=== PATIENT | male | born 1975 | race Caucasian/White ===

== ENCOUNTER 2017-02-21 15:59 | Emergency (ER) | payer OTHER ==
[~2017-02-21] VITALS: Ht 167.6 cm; Wt 88.2 kg
[2017-02-21 16:02] VITALS: BP 132/67; PULSE 78; TEMP 36.4; O2SAT 94; Ht 167.6 cm; Wt 88.2 kg
[2017-02-21] MEDS ORDERED: CEPH500C PO (16:13)
--- NOTE | 2017-02-21 16:13 | EMERGENCY ROOM VISIT NOTE ---
History First contact with patient: 16:06 Chief Complaint: TETANUS SHOT NEEDED Stated Complaint: NEEDS TETANUS SHOT History of Present Illness The patient is a 41 year old male who presents to the Emergency Room via private vehicle with complaints of "needs tetanus shot". The patient states that 3 days ago, he was at a grocery store, pushing a shopping cart when a metal portion of the shopping cart that was rusted was poking out and struck him in the abdomen. It punctured the abdomen near the umbilicus about 1.5 cm. He states pain around the site and believes he needs his tetanus immunization updated. He notes minimal pain at the region, and some redness/swelling. He rates the overall pain as a 0/10. He is concerned because his tetanus is up-to- date. Review of Systems A complete 6-point Review of Systems was discussed with the patient, with pertinent positives and negatives listed in the History of Present Illness. All remaining Review of Systems questions can be considered negative unless otherwise specified. Past Medical/Surgical History No pertinent. Family History No pertinent. Social History Smoking Status: Never Smoker Social History: Patient lives locally. Current/Historical Medications Scheduled Cephalexin Monohydrate (Keflex), 500 MG PO TID Allergies Coded Allergies: No Known Allergies (Unverified , 02/21/17) Physical Exam Vital Signs Date Time Temp Pulse Resp B/P (MAP) Pulse Ox O2 Delivery O2 Flow Rate FiO2 02/21/17 16:02 36.4 78 20 132/67 94 Room Air Physical Exam VITAL SIGNS - Vital signs and nursing notes were reviewed. Stable and afebrile. GENERAL -41-year-old male appearing his stated age who is in no acute distress. Communicates well with provider and answers questions appropriately. SKIN - Without rashes. There is a small erythematous region with a central 0.5 cm circular scab just to the right of the umbilicus in the abdomen. This appears to be a superficial wound. There is no drainage. ABDOMEN - Abdominal contour normal without pulsations or visible masses. There is slight tenderness at the superficial skin at the location of the puncture wound, no evidence of deep involvement. BS normoactive all four quadrants. No deep tenderness, palpable masses, hepatosplenomegaly, or ascites noted. Medical Decision & Procedures Medications Administered Medications (Trade) Dose Ordered Sig/Serena Route Start Time Stop Time Status Last Admin Dose Admin Diphtheria/ Pertussis/Tetanus Vacc (Adacel Inj) 0.5 ml ONCE ONCE IM. 02/21/17 16:15 02/21/17 16:20 DC 02/21/17 16:23 0.5 ML Medical Decision Patient was seen and evaluated as above. He presents to us today for his tetanus booster. He states that he was poked in the abdomen while at a store by the shopping cart that was pallavi. He is concerned that because his tetanus isn't up-to-date he is at risk. His tetanus was updated. The wound was dressed with a bacitracin dressing. He cleansed it at the time of the injury. This is day 3. Because of the small erythema amount, and the puncture wound nature in the abdomen itself I will start him on Keflex because of the high risk for infection. Does not appear to reach any intra-abdominal organ. It is superficial. The patient was educated upon management, educated upon worrisome symptoms which to return, had questions prior to discharge, and was discharged home in good condition. In evaluation and treatment of this patient the following differential diagnoses were entertained: Puncture wound, infection, prophylactic need for tetanus immunization, among others. Impression Primary Impression: Puncture wound Additional Impression: Need for tetanus booster Departure Information Dispostion Home / Self-Care Condition GOOD Prescriptions Cephalexin Monohydrate (Keflex) 500 Mg Cap 500 MG PO TID for 5 Days, #15 CAP Prov: Otis Byrd PA-C 02/21/17 Referrals No Doctor, Assigned (PCP) Patient Instructions My [facility] Additional Instructions Discharge Instructions: Proper wound care is essential for adequate wound healing and infection prevention. You can shower and clean the wound with soap and water. Do not scour over the wound, pat dry with a towel. You can use an antibiotic ointment with a dressing over the wound for the next 3-4 days. After this time you may leave the wound dry and open to the air. If crust develops over the wound you can use a Q-tip to apply a 1:1 peroxide:water solution to clean the wound. Look for signs of infection of the wound including: increased pain, swelling, foul discharge, streaking, or increased temperature. If any of these are noticed you should return to the Emergency Department for further assessment and treatment. As with any laceration you may have received nerve damage to the surrounding tissues. This damage may or may not be permanent. You should keep the area covered with sunscreen for the first 6 months to 1 year when at risk for exposure to help minimize scarring. You can also use scar reducing creams or Vitamin E oil to help minimize scarring. For pain control, you can use the following [id number] medicines (if >12 yo): - Regular strength (325mg/tab) Tylenol (acetaminophen) 2 tabs every 4-6 hours as needed. Do not exceed 12 tablets in a 24 hour period. Avoid taking more than 3 grams (3000 mg) of Tylenol per day. This includes any other sources of acetaminophen you may take on a regular basis. - Regular strength (200 mg/tab) Advil (ibuprofen) 1-2 tabs every 4-6 hours as needed. Do not exceed a dose of 3200 mg per day. Keflex 500 mg every 8 hours for 5 days to help with prevention of infection at the abdomen. Return to the emergency department if your symptoms worsen despite treatment course outlined above. Problem Qualifiers
[2017-02-21] MEDS ORDERED: DIPHTHERIA/TETANUS/PERTUSSIS 0.5 ML SYR/VIAL IM. ONE (16:15)
== END 2017-02-21 16:37 | disposition home or self-care (01) ==
LOC: C.EDB 16:00 → C.EDD 16:37
DX: S31.135A Puncture wound of abdominal wall without foreign body, periumbilic region without penetration into peritoneal cavity, initial encounter (principal); W22.8XXA Striking against or struck by other objects, initial encounter; Y93.89 Activity, other specified; Y99.8 Other external cause status; Z23 Encounter for immunization

== ENCOUNTER 2017-03-02 13:40 | Emergency (ER) | payer OTHER ==
[~2017-03-02] VITALS: Ht 167.6 cm; Wt 86.6 kg
[2017-03-02 13:48] VITALS: TEMP 36.8; Ht 167.6 cm; Wt 86.6 kg
[2017-03-02] MEDS ORDERED: SODIUM CHLORIDE 0.9% 1000ML 1,000 ML IV STA (15:00)
[2017-03-02] MEDS ORDERED: ONDANSETRON INJ 2 MG/ML 2 ML VIAL IV STA (15:00)
--- NOTE | 2017-03-02 15:21 | DIAGNOSTIC IMAGING REPORT ---
CHEST ONE VIEW PORTABLE HISTORY: Generalized abdominal pain. COMPARISON: None. FINDINGS: The lungs are clear. Cardiac silhouette is normal in size. No pleural effusions. No pneumothorax. IMPRESSION: No acute process. Electronically signed by: Marck Diaz M.D. 03/02/2017 3:19 PM Dictated Date/Time: 03/02/2017 3:19 PM
[2017-03-02 15:38] LABS: BASO % 1.6 %; BASO ABS # 0.09 K/uL (0-0.2); COMPLETE YES; HEMATOCRIT 41.6 % (42-52); IG% 0.4 %; LYMPH % 39.4 %; MEAN CELL VOLUME 87.4 fL (80-100); MEAN CORPUSCULAR HEMOGLOBIN 29.4 pg (25-34); MEAN CORPUSCULAR HGB CONC 33.7 g/dl (32-36); MONO % 8.2 %; NEUT % 48.4 %; PLATELET COUNT 211 K/uL (130-400); RED BLOOD COUNT 4.76 M/uL (4.7-6.1); WHITE BLOOD COUNT 5.58 K/uL (4.8-10.8)
[2017-03-02 15:45] LABS: URINE APPEARANCE CLEAR (CLEAR); URINE BILIRUBIN NEG (NEG); URINE COLOR DK YELLOW; URINE NITRITE NEG (NEG); URINE SPECIFIC GRAVITY 1.037 (1.000-1.030); UROBILINOGEN NEG (NEG); ZZUR CULT IF INDIC CLEAN CATCH NO
[2017-03-02 15:49] LABS: MANUAL MICROSCOPIC REQUIRED? NO; REVIEW REQ? NO
[2017-03-02 15:53] LABS: BUN/CREATININE RATIO 14.1 (10-20); CALCIUM 9.1 mg/dl (8.5-10.1); CREATININE 0.92 mg/dl (0.60-1.40)
[2017-03-02] MEDS ORDERED: OPTIRAY 320 IV PRN (17:00)
--- NOTE | 2017-03-02 17:12 | DIAGNOSTIC IMAGING REPORT ---
ABDOMEN AND PELVIS CT WITH IV CONTRAST CT DOSE: 420.59 mGy.cm HISTORY: Generalized abdominal pain. TECHNIQUE: Multiaxial CT images of the abdomen and pelvis were performed following the use of intravenous contrast. A dose lowering technique was utilized adhering to the principles of ALARA. COMPARISON STUDY: None. FINDINGS: The lung bases are clear. The liver, spleen, gallbladder, kidneys, and adrenal glands are within normal limits. 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 Normal appendix. No bowel wall thickening or obstruction. Normal bladder. Punctate calcification posterior to the right bladder wall likely represents a phlebolith. A few colonic diverticula. No suspicious lytic or blastic osseous lesions. IMPRESSION: 1. No bowel wall thickening or obstruction. 2. Colonic diverticulosis. 3. Normal appendix. 4. 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 Electronically signed by: Marck Diaz M.D. 03/02/2017 5:11 PM Dictated Date/Time: 03/02/2017 5:01 PM
--- NOTE | 2017-03-02 17:31 | EMERGENCY ROOM VISIT NOTE ---
History Report prepared by Kathyibmelany: Karla Carnes Under the Supervision of: Dr. Gilberto Crowell D.O. First contact with patient: 14:52 Chief Complaint: URINARY SYMPTOMS Stated Complaint: PAIN IN ABDOMEN AND BACK URINATION PROBLEMS Nursing Triage Summary: triage note: Pt reports "i have wound on my abd i was impalled by a rusted maxime last week." pt reports "i am having a hard time urinating and it is reddish in color." pt also reports right groin pain and right abd pain. History of Present Illness The patient is a 41 year old male who presents to the Emergency Room with complaints of pain with urination beginning a week ago. The patient reports lower abdominal pain, back pain and discolored urine. The patient notes he was impaled by a rusted maxime in his abdomen and was seen in the ED on the for a tetanus shot. He is concerned that his symptoms my be related to the impalement incident. The patient has a history of kidney stones but notes that his pain does not feel like it did when he had kidney stones. Source of History: patient Onset: a week ago Position: other (generalized) Quality: other (pain with urination) Modifying Factors (Relieving): other (none) Associated Symptoms: + abdominal pain, + back pain Review of Systems See HPI for pertinent positives & negatives. A total of 10 systems reviewed and were otherwise negative. Past Medical & Surgical Medical Problems: (1) Kidney stones (2) No Known Active Medical Problems Family History no pertinent family history stated. Social History Smoking Status: Never Smoker Occupation Status: employed Current/Historical Medications No Active Prescriptions or Reported Meds Allergies Coded Allergies: No Known Allergies (Unverified , 03/02/17) Physical Exam Vital Signs Date Time Temp Pulse Resp B/P (MAP) Pulse Ox O2 Delivery O2 Flow Rate FiO2 03/02/17 13:48 36.8 88 18 157/92 97 Room Air Physical Exam CONSTITUTIONAL/VITAL SIGNS: Reviewed / noted above. GENERAL: Non-toxic in appearance. INTEGUMENTARY: Warm, dry, and [place]. HEAD: Normocephalic. EYES: without scleral icterus or trauma. ENT/OROPHARYNX: clear and moist. LYMPHADENOPATHY/NECK: Is supple without lymphadenopathy or meningismus. RESPIRATORY: Lungs clear and equal. CARDIOVASCULAR: Regular rate and rhythm. GI/ABDOMEN: Wound just right and inferior to umbilical region of distance of 2 inches, Mild diffuse abdominal tenderness. No organomegaly or pulsatile mass. No rebound or guarding. Normal bowel sounds. EXTREMITIES: Warm and well perfused. BACK: No CVA tenderness. NEUROLOGICAL: Intact without focal deficits. PSYCHIATRIC: normal affect. MUSCULOSKELETAL: Normally developed with good muscle tone. Medical Decision & Procedures ER Provider Diagnostic Interpretation: Radiology results as stated below per my review and radiologist interpretation: ABDOMEN AND PELVIS CT WITH IV CONTRAST FINDINGS: The lung bases are clear. The liver, spleen, gallbladder, kidneys, and adrenal glands are within normal limits. 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 Normal appendix. No bowel wall thickening or obstruction. Normal bladder. Punctate calcification posterior to the right bladder wall likely represents a phlebolith. A few colonic diverticula. No suspicious lytic or blastic osseous lesions. IMPRESSION: 1. No bowel wall thickening or obstruction. 2. Colonic diverticulosis. 3. Normal appendix. 4. 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 Electronically signed by: Marck Diaz M.D. CHEST ONE VIEW PORTABLE FINDINGS: The lungs are clear. Cardiac silhouette is normal in size. No pleural effusions. No pneumothorax. IMPRESSION: No acute process. Electronically signed by: Marck Diaz M.D. Laboratory Results 03/02/17 15:25 Red Blood Count 4.76, Mean Corpuscular Volume 87.4, Mean Corpuscular Hemoglobin 29.4, Mean Corpuscular Hemoglobin Concent 33.7, Mean Platelet Volume 10.0, Neutrophils (%) (Auto) 48.4, Lymphocytes (%) (Auto) 39.4, Monocytes (%) (Auto) 8.2, Eosinophils (%) (Auto) 2.0, Basophils (%) (Auto) 1.6, Neutrophils # (Auto) 2.70, Lymphocytes # (Auto) 2.20, Monocytes # (Auto) 0.46, Eosinophils # (Auto) 0.11, Basophils # (Auto) 0.09 03/02/17 15:25 Test 03/02/17 15:25 White Blood Count 5.58 K/uL (4.8-10.8) Red Blood Count 4.76 M/uL (4.7-6.1) Hemoglobin 14.0 g/dL (14.0-18.0) Hematocrit 41.6 % (42-52) Mean Corpuscular Volume 87.4 fL (80-100) Mean Corpuscular Hemoglobin 29.4 pg (25-34) Mean Corpuscular Hemoglobin Concent 33.7 g/dl (32-36) Platelet Count 211 K/uL (130-400) Mean Platelet Volume 10.0 fL (7.4-10.4) Neutrophils (%) (Auto) 48.4 % Lymphocytes (%) (Auto) 39.4 % Monocytes (%) (Auto) 8.2 % Eosinophils (%) (Auto) 2.0 % Basophils (%) (Auto) 1.6 % Neutrophils # (Auto) 2.70 K/uL (1.4-6.5) Lymphocytes # (Auto) 2.20 K/uL (1.2-3.4) Monocytes # (Auto) 0.46 K/uL (0.11-0.59) Eosinophils # (Auto) 0.11 K/uL (0-0.5) Basophils # (Auto) 0.09 K/uL (0-0.2) RDW Standard Deviation 42.3 fL (36.4-46.3) RDW Coefficient of Variation 13.2 % (11.5-14.5) Immature Granulocyte % (Auto) 0.4 % Immature Granulocyte # (Auto) 0.02 K/uL (0.00-0.02) Urine Color DK YELLOW Urine Appearance CLEAR (CLEAR) Urine pH 5.0 (4.5-7.5) Urine Specific [place] 1.037 (1.000-1.030) Urine Protein NEG (NEG) Urine Glucose (UA) NEG (NEG) Urine Ketones TRACE (NEG) Urine Occult Blood 3+ (NEG) Urine Nitrite NEG (NEG) Urine Bilirubin NEG (NEG) Urine Urobilinogen NEG (NEG) Urine Leukocyte Esterase NEG (NEG) Urine WBC (Auto) 1-5 /hpf (0-5) Urine RBC (Auto) 10-30 /hpf (0-4) Urine Hyaline Casts (Auto) 1-5 /lpf (0-5) Urine Epithelial Cells (Auto) 5-10 /lpf (0-5) Urine Bacteria (Auto) NEG (NEG) Anion Gap 7.0 mmol/L (3-11) Est Creatinine Clear Calc Drug Dose 110.1 ml/min Estimated GFR () 120.2 Estimated GFR (Non- 103.7 BUN/Creatinine Ratio 14.1 (10-20) Calcium Level 9.1 mg/dl (8.5-10.1) Total Bilirubin 0.6 mg/dl (0.2-1) Direct Bilirubin 0.2 mg/dl (0-0.2) Aspartate Amino Transf (AST/SGOT) 25 U/L (15-37) Alanine Aminotransferase (ALT/SGPT) 36 U/L (12-78) Alkaline Phosphatase 78 U/L (45-117) Total Protein 7.2 gm/dl (6.4-8.2) Albumin 3.7 gm/dl (3.4-5.0) Lipase 68 U/L (73-393) Laboratory results as stated above per my review. Medications Administered Medications (Trade) Dose Ordered Sig/Serena Route Start Time Stop Time Status Last Admin Dose Admin Sodium Chloride 1,000 ml @ 999 mls/hr Q1H1M STAT IV 03/02/17 15:00 03/02/17 16:00 DC 03/02/17 15:52 999 MLS/HR Ondansetron HCl (Zofran Inj) 4 mg NOW STAT IV 03/02/17 15:00 03/02/17 15:03 DC 03/02/17 15:52 4 MG ED Course 1455: Previous medical records were reviewed. The patient was evaluated in room C4. A complete history and physical examination was performed. 1500: Ordered Zofran Inj 4 mg IV, Sodium Chloride 1000 ml @ 999 mls/hr IV. 1700: Ordered Ioversol 100 ml IV. 1732: On reevaluation, the patient is resting. I discussed the results and findings with the patient. He verbalized agreement of the treatment plan. The patient was discharged home. Medical Decision Differential considered: pancreatitis, hepatitis, or acute cholecystitis, AAA, UTI, pyelonephritis, kidney stones, appendicitis, diverticulitis, shingles, bowel obstruction mesenteric ischemia, intussusception,hernia, testicular torsion. This is a 41-year-old male who presents to the ED with a chief complaint of abdominal discomfort. The patient states that he has had the symptoms for about a week. He was seen here on the eighth with a abdominal wound. He was concerned that the symptoms today might be related. His exam reveals a pencil eraser sized wound about 2 inches from the umbilical region at the 7 o'clock position. It does not appear to be infected. It seems to be superficial. There otherwise is some mild diffuse abdominal tenderness. CBC is normal, complete metabolic panel was normal. Lipase is negative. Urine revealed some blood and epithelial cells. CT scan of the abdomen and pelvis are not show any acute process. The patient was told the results of the test. He was felt to be stable for discharge and outpatient follow-up. Blood Pressure Screening Patient's blood pressure: Elevated blood pressure Blood pressure disposition: Elevated BP felt to be situational Impression Primary Impression: Abdominal pain Scribe Attestation The scribe's documentation has been prepared under my direction and personally reviewed by me in its entirety. I confirm that the note above accurately reflects all work, treatment, procedures, and medical decision making performed by me. Departure Information Dispostion Home / Self-Care Prescriptions No Active Prescriptions or Reported Meds Referrals No Doctor, Assigned (PCP) Forms HOME CARE DOCUMENTATION FORM, IMPORTANT VISIT INFORMATION Patient Instructions Abdominal Pain, My [facility] Additional Instructions Follow-up with your doctor for further care and evaluation in 1-2 days. Return to the emergency department for worsening or new symptoms or any concerns. You have been examined and treated today on an emergency basis only. This is not a substitute for, or an effort to provide, complete comprehensive medical care. It is impossible to recognize and treat all injuries or illnesses in a single emergency department visit. It is therefore important that you follow up closely with your doctor. Call as soon as possible for an appointment.
[2017-03-02 17:54] VITALS: BP 134/82; PULSE 81; O2SAT 97
== END 2017-03-02 17:54 | disposition home or self-care (01) ==
LOC: C.EDB 13:41 → C.EDC 17:54
DX: R10.9 Unspecified abdominal pain (principal); R30.0 Dysuria; R82.99 Other abnormal findings in urine; M54.9 Dorsalgia, unspecified; Z87.442 Personal history of urinary calculi; Z87.828 Personal history of other (healed) physical injury and trauma